=== PATIENT | male | born 1980 | race Two or more races ===

== ENCOUNTER 2022-10-08 10:26 | Emergency (ER) | payer MEDICAID, OTHER, SELFPAY ==
[2022-10-08 10:30] VITALS: BP 161/88; PULSE 87; RESP 18; TEMP 36.3; O2SAT 99; BMI 26.6
[2022-10-08 10:41] LABS: MANUAL DIFF FLAG NO
[2022-10-08 10:42] LABS: Basophils Absolute Auto 0.1 X10*3/uL (0.0-0.2); Basophils Percent Auto 1.4 % (0-2); Eosinophils Absolute Auto 0.1 X10*3/uL (0.0-0.4); Eosinophils Percent Auto 1.9 % (0-4); Hematocrit 46.8 % (42.0-52.0); Hemoglobin 15.8 g/dl (14.0-18.0); Imm Gran Abs Auto 0.01 X10*3/uL (0.00-0.03); Imm Gran Pct Auto 0.3 % (0.0-0.4); Lymphocytes Absolute Auto 1.8 X10*3/uL (1.2-4.9); Lymphocytes Percent Auto 49.3 % (20-40); Mean Corpuscular HGB Conc 33.8 g/dl (31.0-36.0); Mean Corpuscular Hemoglobin 29.3 pg (27.0-33.0); Mean Corpuscular Volume 86.8 fL (80.0-98.0); Mean Platelet Volume 11.7 fL (9.4-12.4); Monocytes Absolute Auto 0.4 X10*3/uL (0.1-1.2); Monocytes Percent Auto 10.2 % (2-11); Neutrophils Absolute Auto 1.3 x10*3/uL (2.0-8.3); Neutrophils Percent Auto 36.9 % (45-73); Platelet Count 222 X10*3/uL (160-400); Red Blood Count 5.39 X10*6/uL (4.60-5.80); Red Cell Distribution Width 12.2 % (11.0-16.0); White Blood Count 3.6 X10*3/uL (4.8-10.8)
[2022-10-08 11:07] LABS: Alanine Aminotransferase 22 U/L (0-40); Albumin Level 4.5 g/dL (3.5-5.0); Alkaline Phosphatase 71 U/L (39-117); Anion Gap 12 (12-20); Aspartate Amino Transferase 26 U/L (5-37); Bilirubin Total 1.1 mg/dL (0.0-1.0); Blood Urea Nitrogen 15 mg/dL (9-16); Calcium 9.9 mg/dL (8.4-10.2); Carbon Dioxide 31 mmol/L (22-29); Chloride 102 mmol/L (96-108); Creatinine Clr Calc Pharmacy 105.5; Estimated Glomerular Filt Rate > 60; Glucose Random 108 mg/dL (60-115); Potassium 4.5 mmol/L (3.3-5.1); Sodium 140 mmol/L (135-145); Total Protein 7.1 g/dL (6.5-8.0)
[2022-10-08 11:20] VITALS: BP 153/87; PULSE 71; RESP 14; O2SAT 98
--- NOTE | 2022-10-08 11:30 | ECG_ITS ---
Test Reason : chest pain Blood Pressure : / mmHG Vent. Rate : 087 BPM Atrial Rate : 087 BPM P-R Int : 134 ms QRS Dur : 088 ms QT Int : 362 ms P-R-T Axes : 072 071 049 degrees QTc Int : 435 ms Normal sinus rhythm with sinus arrhythmia Normal ECG No previous ECGs available Referred By: Cedric Chamorro Electronically Signed By:JOSIANE CHUNG MD
--- NOTE | 2022-10-08 11:38 | ED_ITS ---
HPI - General Adult General Chief complaint: General Medical Stated complaint: headache high bp Time Seen by Provider: 10/08/22 11:17 Source: patient Mode of arrival: ambulatory Limitations: no limitations History of Present Illness HPI narrative: 42-year-old male presents with dizziness. Patient does not have a diagnosis of hypertension but reports a longstanding history of elevated blood pressure readings. He also has a strong family history of hypertension. Patient describes dizziness no significant headache, nausea, vomiting or vision changes. Denies any focal neurologic deficits. There is no clear relieving or exacerbating features. Denies alcohol use or illicit drugs. He reports that he is heavily involved in sports in particular soccer which is why he does not use substances. Patient denies any chest pain, shortness of breath. Patient describes symptoms as mild to moderate in nature. Related Data Previous Rx's Medication Instructions Recorded losartan 25 mg tablet 25 mg PO DAILY #10 tabs 10/08/22 Allergies Allergy/AdvReac Type Severity Reaction Status Date / Time No Known Allergies Allergy Verified 10/08/22 11:26 Review of Systems Review of Systems: CONSTITUTIONAL: Denies weight loss, fever and chills. HEENT: Denies changes in vision and hearing. RESPIRATORY: Denies SOB and cough. CV: Denies palpitations no CP. GI: Denies abdominal pain, nausea, vomiting and diarrhea. : Denies dysuria and urinary frequency. MSK: Denies myalgia and joint pain. SKIN: Denies rash and pruritus. NEUROLOGICAL: Denies headache and syncope. PSYCHIATRIC: Denies recent changes in mood. Denies anxiety and depression. All other ROS are negative unless in HPI Yes all other systems are reviewed and are negative [facility] Social History Social History Alcohol intake: never Smoked in Last 30 Days: No Use of substances other than those prescribed or required for medical reasons: No Advance Directives: No Physical Exam ED Vital Signs: Vital Signs - 24 hr 10/08/22 10:30 10/08/22 11:20 10/08/22 12:46 Temperature 97.3 F Pulse Rate 87 71 70 Respiratory Rate 18 14 14 Blood Pressure 161/88 H 153/87 H 130/74 Pulse Oximetry 99 98 100 Oxygen Delivery Method Room Air Room Air Room Air BMI result Body Mass Index 26.6 GEN: Well developed, no acute distress, alert, oriented HEENT: Normocephalic, atraumatic, normal external ears, nose appears normal, no oropharyngeal edema or exudates Eyes: Normal to appearance Neck: Supple, no lymphadenopathy Respiratory: Talks in complete sentences, no respiratory distress, clear to auscultation bilaterally Cardiovascular: Regular rate and rhythm, no murmurs rubs or gallops Abdomen: Soft, nontender, nondistended, no guarding, no rebound Back: No CVA tenderness Extremities: No clubbing cyanosis or edema Neurologic: No focal neurologic deficits, cranial nerves 2-12 intact, strength is 5/5 bilaterally, gait normal Skin: No rash Course Course Course Narrative: 42-year-old male with no major medical problems presents with persistently elevated blood pressure. Patient is currently not on any medications. Is asymptomatic at this time but does complain of dizziness from time to time. Has no focal neurologic deficits. Suspect patient has essential hypertension. Will check renal function as well as an EKG to check for any signs of comorbidities associated with elevated blood pressure. Will start patient on an angiotensin receptor flaco and have him follow-up with internal medicine. Assuming the rest of his workup is normal. Reevaluation(s) Reevaluation #1: Patient's blood pressures come down nicely. I refer the patient to primary care follow-up on blood pressure. I provided him a 2 week course of antihypertensive medications. I discussed all discharge instructions and results. All questions are addressed and answered. Time: 12:55 Medications Administered Discontinued Medications Generic Name Dose Route Start Last Admin Trade Name Freq PRN Reason Stop Dose Admin Losartan Potassium 25 mg 10/08/22 11:33 10/08/22 12:12 Losartan Potassium 25 Mg Tablet PO 10/08/22 11:34 25 mg ONCE ONE Administration Protocol Medical Decision Making Medical Decision Making MDM Narrative: 42-year-old male with no major medical problems presents with persistently elevated blood pressure. Patient is currently not on any medications. Is asymptomatic at this time but does complain of dizziness from time to time. Has no focal neurologic deficits. Suspect patient has essential hypertension. Will check renal function as well as an EKG to check for any signs of comorbidities associated with elevated blood pressure. Will start patient on an angiotensin receptor flaco and have him follow-up with internal medicine. Assuming the rest of his workup is normal. Differential Diagnosis Differential Diagnoses: The differential diagnosis associated with the presentation includes (Essential hypertension, hypertensive urgency, renal dysfunction, hypokalemia) Hypertension Admission/Observation Consideration of admission/observation: Escalation of care including admission/observation considered (However, blood pressure is not high enough to warrant admission this time. Can have outpatient follow-up.) Lab Data MDM Lab Attestation statement: I reviewed the patient's lab results. 10/08/22 10:38 10/08/22 10:38 Labs: Lab Results 10/08/22 10/08/22 Range/Units 10:38 10:38 WBC 3.6 L (4.8-10.8) X10*3/uL RBC 5.39 (4.60-5.80) X10*6/uL Hgb 15.8 (14.0-18.0) g/dl Hct 46.8 (42.0-52.0) % MCV 86.8 (80.0-98.0) fL MCH 29.3 (27.0-33.0) pg MCHC 33.8 (31.0-36.0) g/dl RDW 12.2 (11.0-16.0) % Plt Count 222 (160-400) X10*3/uL MPV 11.7 (9.4-12.4) fL Immature Gran % (Auto) 0.3 (0.0-0.4) % Neut % (Auto) 36.9 L (45-73) % Lymph % (Auto) 49.3 H (20-40) % Dale % (Auto) 10.2 (2-11) % Eos % (Auto) 1.9 (0-4) % Baso % (Auto) 1.4 (0-2) % Lymph # (Auto) 1.8 (1.2-4.9) X10*3/uL Dale # (Auto) 0.4 (0.1-1.2) X10*3/uL Eos # (Auto) 0.1 (0.0-0.4) X10*3/uL Baso # (Auto) 0.1 (0.0-0.2) X10*3/uL Abs Immat Gran (auto) 0.01 (0.00-0.03) X10*3/uL Absolute Neuts (auto) 1.3 L (2.0-8.3) x10*3/uL Absolute Nucleated RBC 0.000 (0.0-0.012) X10*3/uL Nucleated RBC % (auto) 0.0 (0.0-0.2) /100WBC Sodium 140 (135-145) mmol/L Potassium 4.5 (3.3-5.1) mmol/L Chloride 102 (96-108) mmol/L Carbon Dioxide 31 H (22-29) mmol/L Anion Gap 12 (12-20) BUN 15 (9-16) mg/dL Creatinine 0.93 (0.5-1.4) mg/dL Estim Creat Clear Calc 105.5 Estimated GFR > 60 Random Glucose 108 (60-115) mg/dL Calcium 9.9 (8.4-10.2) mg/dL Total Bilirubin 1.1 H (0.0-1.0) mg/dL AST 26 (5-37) U/L ALT 22 (0-40) U/L Alkaline Phosphatase 71 (39-117) U/L Total Protein 7.1 (6.5-8.0) g/dL Albumin 4.5 (3.5-5.0) g/dL Independent Interpretation I performed an independent interpretation of an: EKG (Normal sinus rhythm with a sinus arrhythmia, slightly wandering baseline, heart rate 87, normal intervals, no acute ST elevations or depressions, no comparison) Tests considered The following testing was considered but not selected: CT scan of the head however, patient has no focal neurologic deficits, no headache. Prescription Management I considered prescription management with: Other (Antihypertensives) Discharge Plan Discharge Clinical Impression: Hypertension Patient Disposition: Home, Self-Care Instructions: DASH Eating Plan (ED), Hypertension (ED) Prescriptions: New losartan 25 mg tablet 25 mg PO DAILY Qty: 10 0RF Referrals: [facility] [Provider Group] - 5 days Print Language: Kazakh
[2022-10-08] MEDS: Losartan Potassium 25 MG TABLET PO (12:12)
[2022-10-08 12:46] VITALS: BP 130/74; PULSE 70; RESP 14; O2SAT 100
== END 2022-10-08 13:13 | disposition home or self-care (01) ==
PROVIDERS: Emergency Provider Emergency Medicine
DX: I10 Essential (primary) hypertension (principal); R42 Dizziness and giddiness
CPT/HCPCS: 36415; 80053; 85025; 93005; 99283; 99284